=== PATIENT | female | born 1970 | race Caucasian/White ===

== ENCOUNTER → 2020-01-19 12:34 | Outpatient (CLI) | payer OTHER, SELFPAY ==
--- NOTE | 2020-01-19 12:44 | DI.MG.S_ITS ---
BILATERAL DIGITAL SCREENING MAMMOGRAM 3D/2D WITH CAD: 01/19/2020 CLINICAL: Routine screening. Comparison is made to exams dated: 04/06/2016 mammogram, 03/31/2015 mammogram, and 12/04/2013 mammogram - [facility]. The tissue of both breasts is extremely dense, which lowers the sensitivity of mammography. Current study was also evaluated with a Computer Aided Detection (CAD) system. No significant masses, calcifications, or other findings are seen in either breast. There has been no significant interval change. IMPRESSION: NEGATIVE There is no mammographic evidence of malignancy. A 1 year screening mammogram is recommended. This exam was interpreted at Station ID: [id number]. NOTE: For mammograms, a report in lay terms will be sent to the patient. Approximately 15% of breast malignancies will not be visualized mammographically. In the management of a palpable breast mass, a negative mammogram must not discourage biopsy of a clinically suspicious lesion. Electronically Signed By: Corrie daniel/yaquelin:01/19/2020 13:07:57 letter sent: Normal Exam ACR BI-RADS Category 1: Negative [id number]
--- NOTE | 2020-01-19 12:44 | DI.RAD.S_ITS ---
Approved by: Patrice Hall M.D. on 01/19/2020 at 13:52
== END ==
PROVIDERS: PCP Family Medicine; Referring Provider Psychiatry & Neurology Neurology; Visit Provider Psychiatry & Neurology Neurology
DX: Z12.31 Encounter for screening mammogram for malignant neoplasm of breast (principal); M85.852 Other specified disorders of bone density and structure, left thigh; G35 Multiple sclerosis; E07.9 Disorder of thyroid, unspecified; E83.51 Hypocalcemia; R63.6 Underweight; Z91.89 Other specified personal risk factors, not elsewhere classified; Z82.62 Family history of osteoporosis
CPT/HCPCS: 77063; 77067; 77080

== ENCOUNTER → 2021-09-08 10:37 | Outpatient (CLI) | payer OTHER, SELFPAY | PROVIDERS: PCP Family Medicine; Referring Provider Psychiatry & Neurology Neurology; Visit Provider Psychiatry & Neurology Neurology | DX: G35 Multiple sclerosis (principal) | CPT/HCPCS: 77080 ==

== ENCOUNTER → 2021-12-21 10:44 | Outpatient (CLI) | payer OTHER, SELFPAY ==
--- NOTE | 2021-12-21 | DI.CT.S_ITS ---
PROCEDURE: CT SINUS SCREEN WO CON INDICATIONS: Chronic pansinusitis TECHNIQUE: Noncontrast 3.0 mm axial images acquired from the frontal sinuses to the mid-sella, with coronal and sagittal reformats. For radiation dose reduction, the following was used: automated exposure control, adjustment of mA and/or kV according to patient size. COMPARISON: [facility], CT, SINUS SCREEN WO CONTRAST, 07/24/2016, 10:42. FINDINGS: Image quality: Excellent. Maxillary Sinuses: No bony remodeling or destruction. Sinuses are clear. Ethmoid Air Cells: No bony remodeling or destruction. Sinuses are clear. Sphenoid Sinuses: No bony remodeling or destruction. Sinuses are clear. Frontal Sinuses: No bony remodeling or destruction. Sinuses are clear. Ostiomeatal Complexes: Ostiomeatal complexes are patent. No Gracia cells. Miscellaneous: Visualized intra-orbital contents are normal. No issa bullosa or paradoxical turbinate curvature. No nasal septal deviation. IMPRESSION: Normal CT of the sinuses, unchanged from the prior Approved by: Sivakumar Lynch M.D. on 12/21/2021 at 15:49
== END ==
PROVIDERS: PCP Family Medicine; Referring Provider Otolaryngology; Visit Provider Otolaryngology
DX: J32.4 Chronic pansinusitis (principal)
CPT/HCPCS: 70486

== ENCOUNTER → 2022-04-05 11:26 | Outpatient (CLI) | payer OTHER, SELFPAY ==
--- NOTE | 2022-04-05 | DI.MG.S_ITS ---
BILATERAL DIGITAL SCREENING MAMMOGRAM 3D/2D WITH CAD: 04/05/2022 CLINICAL: Routine screening. Comparison is made to exams dated: 01/19/2020 mammogram, 04/06/2016 mammogram, and 03/31/2015 mammogram - [facility]. Both breasts are extremely dense, which lowers the sensitivity of mammography (category d />75% glandular tissue). Current study was also evaluated with a Computer Aided Detection (CAD) system. No significant masses, calcifications, or other findings are seen in either breast. There has been no significant interval change. IMPRESSION: NEGATIVE There is no mammographic evidence of malignancy. A 1 year screening mammogram is recommended. Based on Tyrer-Cuzick model (a risk assessment model), the patient's lifetime risk is 20.9% and her 10 year risk is 4.9%. If a patient has an elevated risk, a more comprehensive evaluation should be considered and/or a referral to a genetic counselor. The [employer] [employer], [employer], and NCCN Guidelines advise the consideration of Breast MRI as an adjunct to screening mammography in patients whose Lifetime risk to develop breast cancer is 20% or higher. This exam was interpreted at Station ID: [id number]. NOTE: For mammograms, a report in lay terms will be sent to the patient. Approximately 15% of breast malignancies will not be visualized mammographically. In the management of a palpable breast mass, a negative mammogram must not discourage biopsy of a clinically suspicious lesion. Electronically Signed By: Everardo Clinton M.D., jr/yaquelin:04/05/2022 14:24:07 letter sent: Normal Exam ACR BI-RADS Category 1: Negative 3341F
== END ==
PROVIDERS: PCP Physician Assistant; Referring Provider Physician Assistant; Visit Provider Physician Assistant
DX: Z12.31 Encounter for screening mammogram for malignant neoplasm of breast (principal)
CPT/HCPCS: 77063; 77067

== ENCOUNTER 2022-11-12 10:00 | Outpatient (RCR) | payer OTHER, SELFPAY ==
--- NOTE | 2022-09-04 17:25 | PT.OIE ---
Current Diagnoses Stress incontinence (female) (male) (09/03/22) Visit Care Team Role Provider Type Ana Rosa Coleman PA-C Attending Provider Non-Staff Family Provider Primary Care Provider Referring Provider Specialty: Medical Address: [facility], [address], [place], [address] Email: Physical Therapy Initial Evaluation PT-OP-A Visit Information Start: 08/31/22 17:59 Freq: Status: Active Protocol: Document 09/03/22 10:34 LRN (Rec: 09/03/22 11:22 LRN [id number]) Out-Patient Physical Therapy Visit Information Visit Information Visit Type Initial Evaluation Visit Start Time 10:34 Visit Stop Time 11:21 Total Visit Minutes 49 Visit Number 1 Evaluation Information Evaluation Date 09/03/22 Precautions Precautions MS, controlled by medications. PT-OP-B Current Condition Start: 08/31/22 17:59 Freq: Status: Active Protocol: Document 09/03/22 10:34 LRN (Rec: 09/03/22 11:22 LRN [id number]) Current Condition History of Current Condition Onset Date 2 yrs ago. Current Complaints Wants to learn how to strengthen PF ms to prevent prolapse from worsening. History of Current Condition Drinks a ton of water and can always go to the bathroom. In [place], was told she had a mild prolapse. If she has a full bladder and sneeze she leaks and sometimes severe leakage. Developmental History Developmental History 3G, 2P. 2 vaginal births of preemie babies. 1st 6#6oz's required stitches, 2nd no stitches required. Treatment Goals Patient/Caregiver Goals Trying to avoid bladder surgery by being proactive and learn how to strengthen her PF. Pt agreeable to adding goal for indepedent self care HEP, to increase hip mobility and PF strength. Personal Factors Other Personal Factors That May Effect MS diagnosed 15 yrs ago being Therapy/Recovery controlled by interferon, having twitches at night that wake her up, hypothyroid disorder (levothyroxine), acid reflux. PT-OP-C Subjective Start: 08/31/22 17:59 Freq: Status: Active Protocol: Document 09/03/22 10:34 LRN (Rec: 09/03/22 11:22 LRN [id number]) Patient Questionnaires Pelvic Pain and Urgency/Frequency Patient Symptom Scale Pelvic Pain Score 12 PT-OP-I Pelvic Floor Start: 08/31/22 17:59 Freq: Status: Active Protocol: Document 09/03/22 10:34 LRN (Rec: 09/04/22 17:01 LRN [id number]) Pelvic Floor Assessment Prolapse Cystocele Grade 2 Rectocele Grade 1 Perineal Descent Resting Absent Bearing Absent Contraction Ability Manual Muscle Testing Left 2 Manual Muscle Testing Right 3 Manual Muscle Testing Anterior 2 Manual Muscle Testing Posterior 3 Comments Pelvic Floor Comments At PF clock 6 there is extra tissue in the vaginal canal that has appearance of fatty tissue, but skin-tag like. PT-OP-J Posture/Palpation/Skin Start: 09/04/22 16:45 Freq: Status: Active Protocol: Document 09/03/22 10:34 LRN (Rec: 09/04/22 16:47 LRN [id number]) Posture Evaluation Position Standing T-Spine Posture Flattened L-Spine Posture Increased Lordosis Shoulder Posture (L) Rounded,(R) Rounded,(L) Forward,(R) Forward,(L) Elevated Arm Posture (L) Internally Rotated,(R) Internally Rotated Comments Posture Comments Dowagers hump. C-curve of spine with apex on the left. PT-OP-K Range of Motion Start: 08/31/22 17:59 Freq: Status: Active Protocol: Document 09/03/22 10:34 LRN (Rec: 09/03/22 11:22 LRN [id number]) Lumbar Spine Range of Motion Lumbar Spine Active Degrees Testing Position Standing Flexion 85 Extension 25 Rotation Left 20 Rotation Right 15 Lateral Flexion Left 10 Lateral Flexion Right 15 Comments Trunk FB: 85 deg's with 60 deg's of hip flexion Trunk BB: 25 deg's with 15 deg's hip extension Hip Goniometric Range of Motion Hip Right Passive Testing Position Supine Straight Leg Raise 80 Internal Rotation 45 External Rotation 60 Left Passive Testing Position Supine Straight Leg Raise 80 Internal Rotation 45 External Rotation 55 PT-OP-M Strength Start: 08/31/22 17:59 Freq: Status: Active Protocol: Document 09/03/22 10:34 LRN (Rec: 09/03/22 11:22 LRN [id number]) Trunk Strength Trunk Manual Muscle Testing Core Stabilization Pt has loss of core stability in sidelie Hip Strength Hip Manual Muscle Testing Right Flexion (L2) 5 Normal Extension (S1) 5 Normal Abduction 5 Normal Adduction 5 Normal External Rotation 5 Normal Internal Rotation 4 Good Left Flexion (L2) 5 Normal Extension (S1) 5 Normal Abduction 5 Normal Adduction 5 Normal External Rotation 5 Normal Internal Rotation 3+ Fair+ PT-OP-Q Treatments Start: 08/31/22 17:59 Freq: Status: Active Protocol: Document 09/03/22 10:34 LRN (Rec: 09/03/22 11:22 LRN [id number]) Self-Care/Home Management Treatment Education Other Education Discussed results of evaluation, goals, and plan of care (POC). Pt agreeable to goals and POC. Education: Reviewed handout for Kegel exercises for Quick Flicks, Long Holds & Aggrevators. Pt educated in use of Bladder Diary and I/S in tracking for 1 week. Discussed use of 2 different diaries for tracking of bladder. PT-OP-T Assessment and Plan Start: 08/31/22 17:59 Freq: Status: Active Protocol: Document 09/03/22 10:34 LRN (Rec: 09/03/22 11:22 LRN [id number]) Physical Therapy Assessment Rehab Potential Rehabilitation Potential Excellent Evaluation Complexity Number of Personal Factors/Comorbidities 1-2 Number of Body Systems Impaired 4 or More Clinical Presentation at Evaluation Evolving Impairments Impairments Posture,ROM,Strength,Transfers Goals Three Impairment Decreased PF strength Short Term Goal (STG) Improve pt postural awareness (decrease lordosis). STG Duration 10/19/22 Medical Transcription Editor Goal (LTG) At end of walk with a full bladder, walking downhill and sneeze or cough, without leakage. LTG Duration 12/02/22 Two Impairment Decreased hip mobility Fdc Goal (LTG) Symmetry of hip rotation mobility. LTG Duration 12/02/22 One Impairment HEP Short Term Goal (STG) Education in proper breath with transfers and vulvar/ genital care. STG Duration 10/19/22 Medical Transcription Editor Goal (LTG) Trying to avoid bladder surgery by being proactive and learn how to strengthen her PF. LTG Duration 12/02/22 Assessment Summary Assessment Pt is a 51 yo female who presents with cystocele and mild rectocele, with weakness of her PF muscles mainly on the left. Further assessment is needed for endurance and quick flick strength of contractions. The pt has decreased hip ER > IR mobility and trunk R rot/L SB, and demonstrates breath holding with functional movements. From pt's subjective history she appears to have increased urinary frequency that may be related to her fluid intake and output, which will be assessed at her next appointment. The pt will benefit from skillled physical therapy for pt education in vulvar/genital care, proper PF strengthening exercise, hip/ trunk mobility, education and training in proper coordination of transfers with breathwork and PF tightening. Physical Therapy Plan Frequency and Duration Frequency of Treatment 1x/Week Plan of Care Start Date 09/03/22 Plan of Care End Date 12/02/22 Therapeutic Interventions Therapeutic Interventions Home Exercise Program,Joint Mobilizations,Manual Therapy, Neuromuscular Re-education, Patient/Caregiver Education, Self-Care/Home Management,Soft Tissue Mobilization, Therapeutic Activities, Therapeutic Exercises Other Referrals/Consults Referrals/Consults Recommended Assessment of extra vaginal tissue at PF clock 6. Next Visit Focus/Plan Next Note Type Treatment Note Next Visit Plan Review bladder diary (stool types, foods, and water intake ), and Kegels, and educate in Kegel without use of substitute muscles, Assess PF endurance and Quick Flicks and EMG biofeedback assessment. Education in vulvar/genital care, proper deep breathing, proper breathing with transfer /body mechanics. PF/core-TA/hip strengthening, ROM: improve hip mobility, improve abdominal soft tissue (bladder) mobility, Biofeedback with vaginal/ rectal/surface sensor(s).
--- NOTE | 2022-09-04 17:25 | PT.OPPOC ---
Physical, Occupational & Speech Therapy At [facility] Current Diagnoses Stress incontinence (female) (male) (09/03/22) Visit Care Team Role Provider Type Ana Rosa Coleman PA-C Attending Provider Non-Staff Family Provider Primary Care Provider Referring Provider Specialty: Medical Address: [facility], [address] [place] [address] [address], [place], [address] Email: Plan Of Care PT-OP-T Assessment and Plan Start: 08/31/22 17:59 Freq: Status: Active Protocol: Document 09/03/22 10:34 LRN (Rec: 09/03/22 11:22 LRN [id number]) Physical Therapy Assessment Rehab Potential Rehabilitation Potential Excellent Evaluation Complexity Number of Personal Factors/Comorbidities 1-2 Number of Body Systems Impaired 4 or More Clinical Presentation at Evaluation Evolving Impairments Impairments Posture,ROM,Strength,Transfers Goals Three Impairment Decreased PF strength Short Term Goal (STG) Improve pt postural awareness (decrease lordosis). STG Duration 10/19/22 Environmental Project Manager Goal (LTG) At end of walk with a full bladder, walking downhill and sneeze or cough, without leakage. LTG Duration 12/02/22 Two Impairment Decreased hip mobility Nursing Home Goal (LTG) Symmetry of hip rotation mobility. LTG Duration 12/02/22 One Impairment HEP Short Term Goal (STG) Education in proper breath with transfers and vulvar/ genital care. STG Duration 10/19/22 Environmental Project Manager Goal (LTG) Trying to avoid bladder surgery by being proactive and learn how to strengthen her PF. LTG Duration 12/02/22 Assessment Summary Assessment Pt is a 51 yo female who presents with cystocele and mild rectocele, with weakness of her PF muscles mainly on the left. Further assessment is needed for endurance and quick flick strength of contractions. The pt has decreased hip ER > IR mobility and trunk R rot/L SB, and demonstrates breath holding with functional movements. From pt's subjective history she appears to have increased urinary frequency that may be related to her fluid intake and output, which will be assessed at her next appointment. The pt will benefit from skillled physical therapy for pt education in vulvar/genital care, proper PF strengthening exercise, hip/ trunk mobility, education and training in proper coordination of transfers with breathwork and PF tightening. Physical Therapy Plan Frequency and Duration Frequency of Treatment 1x/Week Plan of Care Start Date 09/03/22 Plan of Care End Date 12/02/22 Therapeutic Interventions Therapeutic Interventions Home Exercise Program,Joint Mobilizations,Manual Therapy, Neuromuscular Re-education, Patient/Caregiver Education, Self-Care/Home Management,Soft Tissue Mobilization, Therapeutic Activities, Therapeutic Exercises Other Referrals/Consults Referrals/Consults Recommended Assessment of extra vaginal tissue at PF clock 6. Next Visit Focus/Plan Next Note Type Treatment Note Next Visit Plan Review bladder diary (stool types, foods, and water intake ), and Kegels, and educate in Kegel without use of substitute muscles, Assess PF endurance and Quick Flicks and EMG biofeedback assessment. Education in vulvar/genital care, proper deep breathing, proper breathing with transfer /body mechanics. PF/core-TA/hip strengthening, ROM: improve hip mobility, improve abdominal soft tissue (bladder) mobility, Biofeedback with vaginal/ rectal/surface sensor(s). Plan of Care Dates Plan of Care Start Date 09/03/22 Plan of Care End Date 12/02/22 Electronically Signed by: Corrie Schmidt, PT 09/04/22 [id number] If you are in agreement with this Plan of Care, please return a signed and dated copy. I have reviewed this Plan of Care and certify that the skilled therapy services above are required to meet the patient?s needs. Physician Signature Date Printed Name and Credentials Clinical Instructor Signature Printed Name and Credentials
--- NOTE | 2022-09-10 17:17 | PT.OTN ---
Current Diagnoses Stress incontinence (female) (male) (09/10/22) Physical Therapy Treatment Note PT-OP-A Visit Information Start: 08/31/22 17:59 Freq: Status: Active Protocol: Document 09/10/22 13:50 LRN (Rec: 09/10/22 16:55 LRN [id number]) Out-Patient Physical Therapy Visit Information Visit Information Visit Type Treatment Note Visit Start Time 13:50 Visit Stop Time 14:28 Total Visit Minutes 38 Visit Number 3 Evaluation Information Evaluation Date 09/03/22 Precautions Precautions MS, controlled by medications. PT-OP-B Current Condition Start: 08/31/22 17:59 Freq: Status: Active Protocol: Document 09/03/22 10:34 LRN (Rec: 09/03/22 11:22 LRN [id number]) Current Condition History of Current Condition Onset Date 2 yrs ago. Current Complaints Wants to learn how to strengthen PF ms to prevent prolapse from worsening. History of Current Condition Drinks a ton of water and can always go to the bathroom. In [place], was told she had a mild prolapse. If she has a full bladder and sneeze she leaks and sometimes severe leakage. Developmental History Developmental History 3G, 2P. 2 vaginal births of preemie babies. 1st 6#6oz's required stitches, 2nd no stitches required. Treatment Goals Patient/Caregiver Goals Trying to avoid bladder surgery by being proactive and learn how to strengthen her PF. Pt agreeable to adding goal for indepedent self care HEP, to increase hip mobility and PF strength. Personal Factors Other Personal Factors That May Effect MS diagnosed 15 yrs ago being Therapy/Recovery controlled by interferon, having twitches at night that wake her up, hypothyroid disorder (levothyroxine), acid reflux. PT-OP-C Subjective Start: 08/31/22 17:59 Freq: Status: Active Protocol: Document 09/10/22 13:50 LRN (Rec: 09/10/22 14:35 LRN [id number]) OP-PT Subjective Patient Comments Patient Comments States she tried not to JIC urination. Notices she urinates as much as she drinks . Quick Flicks (10x 3x/day) easier than Long holds (3-4x, 3x/day). PT-OP-I Pelvic Floor Start: 08/31/22 17:59 Freq: Status: Active Protocol: Document 09/03/22 10:34 LRN (Rec: 09/04/22 17:01 LRN [id number]) Pelvic Floor Assessment Prolapse Cystocele Grade 2 Rectocele Grade 1 Perineal Descent Resting Absent Bearing Absent Contraction Ability Manual Muscle Testing Left 2 Manual Muscle Testing Right 3 Manual Muscle Testing Anterior 2 Manual Muscle Testing Posterior 3 Comments Pelvic Floor Comments At PF clock 6 there is extra tissue in the vaginal canal that has appearance of fatty tissue, but skin-tag like. PT-OP-J Posture/Palpation/Skin Start: 09/04/22 16:45 Freq: Status: Active Protocol: Document 09/03/22 10:34 LRN (Rec: 09/04/22 16:47 LRN [id number]) Posture Evaluation Position Standing T-Spine Posture Flattened L-Spine Posture Increased Lordosis Shoulder Posture (L) Rounded,(R) Rounded,(L) Forward,(R) Forward,(L) Elevated Arm Posture (L) Internally Rotated,(R) Internally Rotated Comments Posture Comments Dowagers hump. C-curve of spine with apex on the left. PT-OP-K Range of Motion Start: 08/31/22 17:59 Freq: Status: Active Protocol: Document 09/03/22 10:34 LRN (Rec: 09/03/22 11:22 LRN [id number]) Lumbar Spine Range of Motion Lumbar Spine Active Degrees Testing Position Standing Flexion 85 Extension 25 Rotation Left 20 Rotation Right 15 Lateral Flexion Left 10 Lateral Flexion Right 15 Comments Trunk FB: 85 deg's with 60 deg's of hip flexion Trunk BB: 25 deg's with 15 deg's hip extension Hip Goniometric Range of Motion Hip Right Passive Testing Position Supine Straight Leg Raise 80 Internal Rotation 45 External Rotation 60 Left Passive Testing Position Supine Straight Leg Raise 80 Internal Rotation 45 External Rotation 55 PT-OP-M Strength Start: 08/31/22 17:59 Freq: Status: Active Protocol: Document 09/03/22 10:34 LRN (Rec: 09/03/22 11:22 LRN [id number]) Trunk Strength Trunk Manual Muscle Testing Core Stabilization Pt has loss of core stability in sidelie Hip Strength Hip Manual Muscle Testing Right Flexion (L2) 5 Normal Extension (S1) 5 Normal Abduction 5 Normal Adduction 5 Normal External Rotation 5 Normal Internal Rotation 4 Good Left Flexion (L2) 5 Normal Extension (S1) 5 Normal Abduction 5 Normal Adduction 5 Normal External Rotation 5 Normal Internal Rotation 3+ Fair+ PT-OP-Q Treatments Start: 08/31/22 17:59 Freq: Status: Active Protocol: Document 09/10/22 13:50 LRN (Rec: 09/10/22 14:35 LRN [id number]) Therapeutic Exercises Supine Exercises Deep Breathing Supine Exercise Name With Cuing and w/o cuing. Reps/Minutes 3' Comments Extra time taken for training, phys & v cuing needed. Bowel Massage Supine Exercise Name Bowel massage w/assist & independently Reps/Minutes 15' Comments Extra time taken for training, phys & v cuing needed. Self-Care/Home Management Treatment Education Patient Education Home Exercise Program Other Education Reviewed Bladder dairy and discussed fluid intake (AM/PM) , bowel movement frequency. Pt lengthy education and discussion of how constipation exacerbate bladder prolapse. Discussed at length Bowel program with I/S of pt to discuss with MD use of magnesium for constipation if needed. Discussed and educated pt in Bowel massage technique with handout issued. Pt educated in PF muscles and internal organ positioning using balloon in canister concept, explaining pressures on organs (cystocele/rectocele ) and discussed how this can worsen with decreased bowel mobility and breath holding. Activities Self-Care/Home Management Activities Issued & reviewed HEP: Bowel Program & Bowel Massage, and deep breathing instructions. PT-OP-T Assessment and Plan Start: 08/31/22 17:59 Freq: Status: Active Protocol: Document 09/10/22 13:50 LRN (Rec: 09/10/22 14:35 LRN [id number]) Physical Therapy Assessment Goals Three Impairment Decreased PF strength Short Term Goal (STG) Improve pt postural awareness (decrease lordosis). STG Duration 10/19/22 Nursing Home Goal (LTG) At end of walk with a full bladder, walking downhill and sneeze or cough, without leakage. LTG Duration 12/02/22 Two Impairment Decreased hip mobility Block Tester Goal (LTG) Symmetry of hip rotation mobility. LTG Duration 12/02/22 One Impairment HEP Short Term Goal (STG) Education in proper breath with transfers and vulvar/ genital care. 09/10/22: Pt educated in deep deep breathing for transfers. STG Duration 10/19/22 progressing 09/10/22 - educ in breathing. Nursing Home Goal (LTG) Trying to avoid bladder surgery by being proactive and learn how to strengthen her PF. LTG Duration 12/02/22 Assessment Summary Assessment Pt receptive to recommendations of bladder review request of counting voiding times with urination and increasing fiber in diet. Pt also very receptive regarding bowel program to increase fiber in diet. Pt needed training for bowel massage and deep breathing was not able to achieve completely due to possible habit of use of upper chest for breathing. Physical Therapy Plan Frequency and Duration Frequency of Treatment 1x/Week Plan of Care Start Date 09/03/22 Plan of Care End Date 12/02/22 Next Visit Focus/Plan Next Note Type Treatment Note Next Visit Plan Review bladder diary (for fluid intake vs output in seconds) and deep breathing. Review Kegels and educate in Kegel without use of substitute muscles. Education in vulvar/genital care, proper breathing with transfer/body mechanics. Assess PF endurance and Quick Flicks and EMG biofeedback assessment. Biofeedback with vaginal/rectal/surface sensor( s). PF/core-TA/hip strengthening, ROM: improve hip mobility, improve abdominal soft tissue (bladder) mobility,
--- NOTE | 2022-10-22 16:03 | PT.OTN ---
Current Diagnoses Stress incontinence (female) (male) (10/22/22) Physical Therapy Treatment Note PT-OP-A Visit Information Start: 08/31/22 17:59 Freq: Status: Active Protocol: Document 10/22/22 13:39 AMB (Rec: 10/22/22 14:34 AMB [id number]) Out-Patient Physical Therapy Visit Information Visit Information Visit Type Treatment Note Visit Start Time 13:50 Visit Stop Time 14:28 Total Visit Minutes 38 Visit Number 4 PT-OP-B Current Condition Start: 08/31/22 17:59 Freq: Status: Active Protocol: Document 09/03/22 10:34 LRN (Rec: 09/03/22 11:22 LRN [id number]) Current Condition History of Current Condition Onset Date 2 yrs ago. Current Complaints Wants to learn how to strengthen PF ms to prevent prolapse from worsening. History of Current Condition Drinks a ton of water and can always go to the bathroom. In [place], was told she had a mild prolapse. If she has a full bladder and sneeze she leaks and sometimes severe leakage. Developmental History Developmental History 3G, 2P. 2 vaginal births of preemie babies. 1st 6#6oz's required stitches, 2nd no stitches required. Treatment Goals Patient/Caregiver Goals Trying to avoid bladder surgery by being proactive and learn how to strengthen her PF. Pt agreeable to adding goal for indepedent self care HEP, to increase hip mobility and PF strength. Personal Factors Other Personal Factors That May Effect MS diagnosed 15 yrs ago being Therapy/Recovery controlled by interferon, having twitches at night that wake her up, hypothyroid disorder (levothyroxine), acid reflux. PT-OP-C Subjective Start: 08/31/22 17:59 Freq: Status: Active Protocol: Document 10/22/22 13:39 AMB (Rec: 10/22/22 14:34 AMB [id number]) OP-PT Subjective Patient Comments Patient Comments Feels like ability to wait every 2 hours. PT-OP-I Pelvic Floor Start: 08/31/22 17:59 Freq: Status: Active Protocol: Document 09/03/22 10:34 LRN (Rec: 09/04/22 17:01 LRN [id number]) Pelvic Floor Assessment Prolapse Cystocele Grade 2 Rectocele Grade 1 Perineal Descent Resting Absent Bearing Absent Contraction Ability Manual Muscle Testing Left 2 Manual Muscle Testing Right 3 Manual Muscle Testing Anterior 2 Manual Muscle Testing Posterior 3 Comments Pelvic Floor Comments At PF clock 6 there is extra tissue in the vaginal canal that has appearance of fatty tissue, but skin-tag like. PT-OP-J Posture/Palpation/Skin Start: 09/04/22 16:45 Freq: Status: Active Protocol: Document 09/03/22 10:34 LRN (Rec: 09/04/22 16:47 LRN [id number]) Posture Evaluation Position Standing T-Spine Posture Flattened L-Spine Posture Increased Lordosis Shoulder Posture (L) Rounded,(R) Rounded,(L) Forward,(R) Forward,(L) Elevated Arm Posture (L) Internally Rotated,(R) Internally Rotated Comments Posture Comments Dowagers hump. C-curve of spine with apex on the left. PT-OP-K Range of Motion Start: 08/31/22 17:59 Freq: Status: Active Protocol: Document 09/03/22 10:34 LRN (Rec: 09/03/22 11:22 LRN [id number]) Lumbar Spine Range of Motion Lumbar Spine Active Degrees Testing Position Standing Flexion 85 Extension 25 Rotation Left 20 Rotation Right 15 Lateral Flexion Left 10 Lateral Flexion Right 15 Comments Trunk FB: 85 deg's with 60 deg's of hip flexion Trunk BB: 25 deg's with 15 deg's hip extension Hip Goniometric Range of Motion Hip Right Passive Testing Position Supine Straight Leg Raise 80 Internal Rotation 45 External Rotation 60 Left Passive Testing Position Supine Straight Leg Raise 80 Internal Rotation 45 External Rotation 55 PT-OP-M Strength Start: 08/31/22 17:59 Freq: Status: Active Protocol: Document 09/03/22 10:34 LRN (Rec: 09/03/22 11:22 LRN [id number]) Trunk Strength Trunk Manual Muscle Testing Core Stabilization Pt has loss of core stability in sidelie Hip Strength Hip Manual Muscle Testing Right Flexion (L2) 5 Normal Extension (S1) 5 Normal Abduction 5 Normal Adduction 5 Normal External Rotation 5 Normal Internal Rotation 4 Good Left Flexion (L2) 5 Normal Extension (S1) 5 Normal Abduction 5 Normal Adduction 5 Normal External Rotation 5 Normal Internal Rotation 3+ Fair+ PT-OP-Q Treatments Start: 08/31/22 17:59 Freq: Status: Active Protocol: Document 10/22/22 13:39 AMB (Rec: 10/22/22 14:34 AMB [id number]) Therapeutic Exercises Supine Exercises Long hold Supine Exercise Name with cues for levator ani lift PT-OP-T Assessment and Plan Start: 08/31/22 17:59 Freq: Status: Active Protocol: Document 10/22/22 13:39 AMB (Rec: 10/22/22 14:34 AMB [id number]) Physical Therapy Assessment Goals Three Impairment Decreased PF strength Short Term Goal (STG) Improve pt postural awareness (decrease lordosis). STG Duration 10/19/22 Front End Driver Goal (LTG) At end of walk with a full bladder, walking downhill and sneeze or cough, without leakage. LTG Duration 12/02/22 Two Impairment Decreased hip mobility Usp Goal (LTG) Symmetry of hip rotation mobility. LTG Duration 12/02/22 One Impairment HEP Short Term Goal (STG) Education in proper breath with transfers and vulvar/ genital care. 09/10/22: Pt educated in deep deep breathing for transfers. STG Duration 10/19/22 progressing 09/10/22 - educ in breathing. Usp Goal (LTG) Trying to avoid bladder surgery by being proactive and learn how to strengthen her PF. LTG Duration 12/02/22 Assessment Summary Assessment Pt concerned about extra skin found vaginally, consider changes from childbirth as is right next to perineal scar. Pt is considering vaginal estrogen cream. Pt encouraged in really working on lift. Physical Therapy Plan Frequency and Duration Frequency of Treatment 1x/Week Plan of Care Start Date 09/03/22 Plan of Care End Date 12/02/22 Therapeutic Interventions Therapeutic Interventions Home Exercise Program,Joint Mobilizations,Manual Therapy, Neuromuscular Re-education, Patient/Caregiver Education, Self-Care/Home Management,Soft Tissue Mobilization, Therapeutic Activities, Therapeutic Exercises Next Visit Focus/Plan Next Note Type Treatment Note Next Visit Plan Review bladder diary (for fluid intake vs output in seconds) and deep breathing. Review Kegels and educate in Kegel without use of substitute muscles. Education in vulvar/genital care, proper breathing with transfer/body mechanics. Assess PF endurance and Quick Flicks and EMG biofeedback assessment. Biofeedback with vaginal/rectal/surface sensor( s). PF/core-TA/hip strengthening, ROM: improve hip mobility, improve abdominal soft tissue (bladder) mobility,
--- NOTE | 2022-10-29 10:50 | PT.OTN ---
Current Diagnoses Stress incontinence (female) (male) (10/29/22) Physical Therapy Treatment Note PT-OP-A Visit Information Start: 08/31/22 17:59 Freq: Status: Active Protocol: Document 10/29/22 10:00 AMB (Rec: 10/29/22 10:49 AMB [id number]) Out-Patient Physical Therapy Visit Information Visit Information Visit Type Treatment Note Visit Start Time 13:50 Visit Stop Time 14:28 Total Visit Minutes 38 Visit Number 5 PT-OP-B Current Condition Start: 08/31/22 17:59 Freq: Status: Active Protocol: Document 09/03/22 10:34 LRN (Rec: 09/03/22 11:22 LRN [id number]) Current Condition History of Current Condition Onset Date 2 yrs ago. Current Complaints Wants to learn how to strengthen PF ms to prevent prolapse from worsening. History of Current Condition Drinks a ton of water and can always go to the bathroom. In [place], was told she had a mild prolapse. If she has a full bladder and sneeze she leaks and sometimes severe leakage. Developmental History Developmental History 3G, 2P. 2 vaginal births of preemie babies. 1st 6#6oz's required stitches, 2nd no stitches required. Treatment Goals Patient/Caregiver Goals Trying to avoid bladder surgery by being proactive and learn how to strengthen her PF. Pt agreeable to adding goal for indepedent self care HEP, to increase hip mobility and PF strength. Personal Factors Other Personal Factors That May Effect MS diagnosed 15 yrs ago being Therapy/Recovery controlled by interferon, having twitches at night that wake her up, hypothyroid disorder (levothyroxine), acid reflux. PT-OP-C Subjective Start: 08/31/22 17:59 Freq: Status: Active Protocol: Document 10/29/22 10:00 AMB (Rec: 10/29/22 10:49 AMB [id number]) OP-PT Subjective Patient Comments Patient Comments Pt feels like ability to hold contraction is improving. PT-OP-I Pelvic Floor Start: 08/31/22 17:59 Freq: Status: Active Protocol: Document 09/03/22 10:34 LRN (Rec: 09/04/22 17:01 LRN [id number]) Pelvic Floor Assessment Prolapse Cystocele Grade 2 Rectocele Grade 1 Perineal Descent Resting Absent Bearing Absent Contraction Ability Manual Muscle Testing Left 2 Manual Muscle Testing Right 3 Manual Muscle Testing Anterior 2 Manual Muscle Testing Posterior 3 Comments Pelvic Floor Comments At PF clock 6 there is extra tissue in the vaginal canal that has appearance of fatty tissue, but skin-tag like. PT-OP-J Posture/Palpation/Skin Start: 09/04/22 16:45 Freq: Status: Active Protocol: Document 09/03/22 10:34 LRN (Rec: 09/04/22 16:47 LRN [id number]) Posture Evaluation Position Standing T-Spine Posture Flattened L-Spine Posture Increased Lordosis Shoulder Posture (L) Rounded,(R) Rounded,(L) Forward,(R) Forward,(L) Elevated Arm Posture (L) Internally Rotated,(R) Internally Rotated Comments Posture Comments Dowagers hump. C-curve of spine with apex on the left. PT-OP-K Range of Motion Start: 08/31/22 17:59 Freq: Status: Active Protocol: Document 09/03/22 10:34 LRN (Rec: 09/03/22 11:22 LRN [id number]) Lumbar Spine Range of Motion Lumbar Spine Active Degrees Testing Position Standing Flexion 85 Extension 25 Rotation Left 20 Rotation Right 15 Lateral Flexion Left 10 Lateral Flexion Right 15 Comments Trunk FB: 85 deg's with 60 deg's of hip flexion Trunk BB: 25 deg's with 15 deg's hip extension Hip Goniometric Range of Motion Hip Right Passive Testing Position Supine Straight Leg Raise 80 Internal Rotation 45 External Rotation 60 Left Passive Testing Position Supine Straight Leg Raise 80 Internal Rotation 45 External Rotation 55 PT-OP-M Strength Start: 08/31/22 17:59 Freq: Status: Active Protocol: Document 09/03/22 10:34 LRN (Rec: 09/03/22 11:22 LRN [id number]) Trunk Strength Trunk Manual Muscle Testing Core Stabilization Pt has loss of core stability in sidelie Hip Strength Hip Manual Muscle Testing Right Flexion (L2) 5 Normal Extension (S1) 5 Normal Abduction 5 Normal Adduction 5 Normal External Rotation 5 Normal Internal Rotation 4 Good Left Flexion (L2) 5 Normal Extension (S1) 5 Normal Abduction 5 Normal Adduction 5 Normal External Rotation 5 Normal Internal Rotation 3+ Fair+ PT-OP-Q Treatments Start: 08/31/22 17:59 Freq: Status: Active Protocol: Document 10/29/22 10:00 AMB (Rec: 10/29/22 10:49 AMB [id number]) Neuro Re-Education Treatment Other Activities sEMG Comments 10 second holds. PT-OP-T Assessment and Plan Start: 08/31/22 17:59 Freq: Status: Active Protocol: Document 10/29/22 10:00 AMB (Rec: 10/29/22 10:49 AMB [id number]) Physical Therapy Assessment Goals Three Impairment Decreased PF strength Short Term Goal (STG) Improve pt postural awareness (decrease lordosis). STG Duration 10/19/22 Rental Agent Goal (LTG) At end of walk with a full bladder, walking downhill and sneeze or cough, without leakage. LTG Duration 12/02/22 Two Impairment Decreased hip mobility Rental Agent Goal (LTG) Symmetry of hip rotation mobility. LTG Duration 12/02/22 One Impairment HEP Short Term Goal (STG) Education in proper breath with transfers and vulvar/ genital care. 09/10/22: Pt educated in deep deep breathing for transfers. STG Duration 10/19/22 progressing 09/10/22 - educ in breathing. Halfway Goal (LTG) Trying to avoid bladder surgery by being proactive and learn how to strengthen her PF. LTG Duration 12/02/22 Assessment Summary Assessment Baseline 3, avg 9, max 22, some fading from initial contraction after the first few seconds. Encouraged pt to contract pelvic floor while lifting, will progress HEP at next visit, focus on breath and lifting perineum. Physical Therapy Plan Frequency and Duration Frequency of Treatment 1x/Week Plan of Care Start Date 09/03/22 Plan of Care End Date 12/02/22 Therapeutic Interventions Therapeutic Interventions Home Exercise Program,Joint Mobilizations,Manual Therapy, Neuromuscular Re-education, Patient/Caregiver Education, Self-Care/Home Management,Soft Tissue Mobilization, Therapeutic Activities, Therapeutic Exercises Next Visit Focus/Plan Next Note Type Treatment Note Next Visit Plan Progress HEPEMG biofeedback assessment. Biofeedback with vaginal/rectal/surface sensor( s). PF/core-TA/hip strengthening, ROM: improve hip mobility, improve abdominal soft tissue (bladder) mobility,
--- NOTE | 2022-11-05 13:08 | PT.OTN ---
Current Diagnoses Stress incontinence (female) (male) (11/05/22) Physical Therapy Treatment Note PT-OP-A Visit Information Start: 08/31/22 17:59 Freq: Status: Active Protocol: Document 11/05/22 12:48 AMB (Rec: 11/05/22 13:27 AMB [id number]) Out-Patient Physical Therapy Visit Information Visit Information Visit Type Treatment Note Visit Start Time 12:45 Visit Stop Time 13:30 Total Visit Minutes 45 Visit Number 6 PT-OP-B Current Condition Start: 08/31/22 17:59 Freq: Status: Active Protocol: Document 09/03/22 10:34 LRN (Rec: 09/03/22 11:22 LRN [id number]) Current Condition History of Current Condition Onset Date 2 yrs ago. Current Complaints Wants to learn how to strengthen PF ms to prevent prolapse from worsening. History of Current Condition Drinks a ton of water and can always go to the bathroom. In [place], was told she had a mild prolapse. If she has a full bladder and sneeze she leaks and sometimes severe leakage. Developmental History Developmental History 3G, 2P. 2 vaginal births of preemie babies. 1st 6#6oz's required stitches, 2nd no stitches required. Treatment Goals Patient/Caregiver Goals Trying to avoid bladder surgery by being proactive and learn how to strengthen her PF. Pt agreeable to adding goal for indepedent self care HEP, to increase hip mobility and PF strength. Personal Factors Other Personal Factors That May Effect MS diagnosed 15 yrs ago being Therapy/Recovery controlled by interferon, having twitches at night that wake her up, hypothyroid disorder (levothyroxine), acid reflux. PT-OP-C Subjective Start: 08/31/22 17:59 Freq: Status: Active Protocol: Document 11/05/22 12:48 AMB (Rec: 11/05/22 13:27 AMB [id number]) OP-PT Subjective Patient Comments Patient Comments Noticing improvement with her pelvic floor, PT-OP-I Pelvic Floor Start: 08/31/22 17:59 Freq: Status: Active Protocol: Document 09/03/22 10:34 LRN (Rec: 09/04/22 17:01 LRN [id number]) Pelvic Floor Assessment Prolapse Cystocele Grade 2 Rectocele Grade 1 Perineal Descent Resting Absent Bearing Absent Contraction Ability Manual Muscle Testing Left 2 Manual Muscle Testing Right 3 Manual Muscle Testing Anterior 2 Manual Muscle Testing Posterior 3 Comments Pelvic Floor Comments At PF clock 6 there is extra tissue in the vaginal canal that has appearance of fatty tissue, but skin-tag like. PT-OP-J Posture/Palpation/Skin Start: 09/04/22 16:45 Freq: Status: Active Protocol: Document 09/03/22 10:34 LRN (Rec: 09/04/22 16:47 LRN [id number]) Posture Evaluation Position Standing T-Spine Posture Flattened L-Spine Posture Increased Lordosis Shoulder Posture (L) Rounded,(R) Rounded,(L) Forward,(R) Forward,(L) Elevated Arm Posture (L) Internally Rotated,(R) Internally Rotated Comments Posture Comments Dowagers hump. C-curve of spine with apex on the left. PT-OP-K Range of Motion Start: 08/31/22 17:59 Freq: Status: Active Protocol: Document 09/03/22 10:34 LRN (Rec: 09/03/22 11:22 LRN [id number]) Lumbar Spine Range of Motion Lumbar Spine Active Degrees Testing Position Standing Flexion 85 Extension 25 Rotation Left 20 Rotation Right 15 Lateral Flexion Left 10 Lateral Flexion Right 15 Comments Trunk FB: 85 deg's with 60 deg's of hip flexion Trunk BB: 25 deg's with 15 deg's hip extension Hip Goniometric Range of Motion Hip Right Passive Testing Position Supine Straight Leg Raise 80 Internal Rotation 45 External Rotation 60 Left Passive Testing Position Supine Straight Leg Raise 80 Internal Rotation 45 External Rotation 55 PT-OP-M Strength Start: 08/31/22 17:59 Freq: Status: Active Protocol: Document 09/03/22 10:34 LRN (Rec: 09/03/22 11:22 LRN [id number]) Trunk Strength Trunk Manual Muscle Testing Core Stabilization Pt has loss of core stability in sidelie Hip Strength Hip Manual Muscle Testing Right Flexion (L2) 5 Normal Extension (S1) 5 Normal Abduction 5 Normal Adduction 5 Normal External Rotation 5 Normal Internal Rotation 4 Good Left Flexion (L2) 5 Normal Extension (S1) 5 Normal Abduction 5 Normal Adduction 5 Normal External Rotation 5 Normal Internal Rotation 3+ Fair+ PT-OP-Q Treatments Start: 08/31/22 17:59 Freq: Status: Active Protocol: Document 11/05/22 12:48 AMB (Rec: 11/05/22 13:27 AMB [id number]) Therapeutic Exercises Sitting Exercises roll in roll out Reps/Minutes 2x10 Comments challenging Standing Exercises sit to stand Standing Exercise Name with pelvic floor contract Reps/Minutes 2x10 PT-OP-T Assessment and Plan Start: 08/31/22 17:59 Freq: Status: Active Protocol: Document 11/05/22 12:48 AMB (Rec: 11/05/22 13:27 AMB [id number]) Physical Therapy Assessment Goals Three Impairment Decreased PF strength Short Term Goal (STG) Improve pt postural awareness (decrease lordosis). STG Duration 10/19/22 Skilled Nursing Goal (LTG) At end of walk with a full bladder, walking downhill and sneeze or cough, without leakage. LTG Duration 12/02/22 Two Impairment Decreased hip mobility Promotion Officer Goal (LTG) Symmetry of hip rotation mobility. LTG Duration 12/02/22 One Impairment HEP Short Term Goal (STG) Education in proper breath with transfers and vulvar/ genital care. 09/10/22: Pt educated in deep deep breathing for transfers. STG Duration 10/19/22 progressing 09/10/22 - educ in breathing. Promotion Officer Goal (LTG) Trying to avoid bladder surgery by being proactive and learn how to strengthen her PF. LTG Duration 12/02/22 Assessment Summary Assessment Encouraged pt in engaging pelvic floor with movement, and to progress kegels into standing to provide more challenge. Physical Therapy Plan Frequency and Duration Frequency of Treatment 1x/Week Plan of Care Start Date 09/03/22 Plan of Care End Date 12/02/22 Therapeutic Interventions Therapeutic Interventions Home Exercise Program,Joint Mobilizations,Manual Therapy, Neuromuscular Re-education, Patient/Caregiver Education, Self-Care/Home Management,Soft Tissue Mobilization, Therapeutic Activities, Therapeutic Exercises Next Visit Focus/Plan Next Note Type Treatment Note Next Visit Plan Progress HEPEMG biofeedback assessment. Biofeedback with vaginal/rectal/surface sensor( s). PF/core-TA/hip strengthening, ROM: improve hip mobility, improve abdominal soft tissue (bladder) mobility,
--- NOTE | 2022-11-12 10:46 | PT.OTN ---
Current Diagnoses Stress incontinence (female) (male) (11/12/22) Physical Therapy Treatment Note PT-OP-A Visit Information Start: 08/31/22 17:59 Freq: Status: Active Protocol: Document 11/12/22 10:03 AMB (Rec: 11/12/22 10:46 AMB [id number]) Out-Patient Physical Therapy Visit Information Visit Information Visit Type Treatment Note Visit Start Time 10:00 Visit Stop Time 10:45 Total Visit Minutes 45 Visit Number 7 PT-OP-B Current Condition Start: 08/31/22 17:59 Freq: Status: Active Protocol: Document 09/03/22 10:34 LRN (Rec: 09/03/22 11:22 LRN [id number]) Current Condition History of Current Condition Onset Date 2 yrs ago. Current Complaints Wants to learn how to strengthen PF ms to prevent prolapse from worsening. History of Current Condition Drinks a ton of water and can always go to the bathroom. In [place], was told she had a mild prolapse. If she has a full bladder and sneeze she leaks and sometimes severe leakage. Developmental History Developmental History 3G, 2P. 2 vaginal births of preemie babies. 1st 6#6oz's required stitches, 2nd no stitches required. Treatment Goals Patient/Caregiver Goals Trying to avoid bladder surgery by being proactive and learn how to strengthen her PF. Pt agreeable to adding goal for indepedent self care HEP, to increase hip mobility and PF strength. Personal Factors Other Personal Factors That May Effect MS diagnosed 15 yrs ago being Therapy/Recovery controlled by interferon, having twitches at night that wake her up, hypothyroid disorder (levothyroxine), acid reflux. PT-OP-C Subjective Start: 08/31/22 17:59 Freq: Status: Active Protocol: Document 11/12/22 10:03 AMB (Rec: 11/12/22 10:46 AMB [id number]) OP-PT Subjective Patient Comments Patient Comments Pt is up to 10 seconds in sitting, but worried about compensating with abs and glutes. PT-OP-I Pelvic Floor Start: 08/31/22 17:59 Freq: Status: Active Protocol: Document 09/03/22 10:34 LRN (Rec: 09/04/22 17:01 LRN [id number]) Pelvic Floor Assessment Prolapse Cystocele Grade 2 Rectocele Grade 1 Perineal Descent Resting Absent Bearing Absent Contraction Ability Manual Muscle Testing Left 2 Manual Muscle Testing Right 3 Manual Muscle Testing Anterior 2 Manual Muscle Testing Posterior 3 Comments Pelvic Floor Comments At PF clock 6 there is extra tissue in the vaginal canal that has appearance of fatty tissue, but skin-tag like. PT-OP-J Posture/Palpation/Skin Start: 09/04/22 16:45 Freq: Status: Active Protocol: Document 09/03/22 10:34 LRN (Rec: 09/04/22 16:47 LRN [id number]) Posture Evaluation Position Standing T-Spine Posture Flattened L-Spine Posture Increased Lordosis Shoulder Posture (L) Rounded,(R) Rounded,(L) Forward,(R) Forward,(L) Elevated Arm Posture (L) Internally Rotated,(R) Internally Rotated Comments Posture Comments Dowagers hump. C-curve of spine with apex on the left. PT-OP-K Range of Motion Start: 08/31/22 17:59 Freq: Status: Active Protocol: Document 09/03/22 10:34 LRN (Rec: 09/03/22 11:22 LRN [id number]) Lumbar Spine Range of Motion Lumbar Spine Active Degrees Testing Position Standing Flexion 85 Extension 25 Rotation Left 20 Rotation Right 15 Lateral Flexion Left 10 Lateral Flexion Right 15 Comments Trunk FB: 85 deg's with 60 deg's of hip flexion Trunk BB: 25 deg's with 15 deg's hip extension Hip Goniometric Range of Motion Hip Right Passive Testing Position Supine Straight Leg Raise 80 Internal Rotation 45 External Rotation 60 Left Passive Testing Position Supine Straight Leg Raise 80 Internal Rotation 45 External Rotation 55 PT-OP-M Strength Start: 08/31/22 17:59 Freq: Status: Active Protocol: Document 09/03/22 10:34 LRN (Rec: 09/03/22 11:22 LRN [id number]) Trunk Strength Trunk Manual Muscle Testing Core Stabilization Pt has loss of core stability in sidelie Hip Strength Hip Manual Muscle Testing Right Flexion (L2) 5 Normal Extension (S1) 5 Normal Abduction 5 Normal Adduction 5 Normal External Rotation 5 Normal Internal Rotation 4 Good Left Flexion (L2) 5 Normal Extension (S1) 5 Normal Abduction 5 Normal Adduction 5 Normal External Rotation 5 Normal Internal Rotation 3+ Fair+ PT-OP-Q Treatments Start: 08/31/22 17:59 Freq: Status: Active Protocol: Document 11/12/22 10:03 AMB (Rec: 11/12/22 10:46 AMB [id number]) Therapeutic Exercises Sitting Exercises 65cm Sitting Exercise Name ball sitting, control with UE flexion Comments 10 second long hold Standing Exercises quick flicks Standing Exercise Name challenging felt glutes take over sit to stand Standing Exercise Name with pelvic floor contract Reps/Minutes 2x10 PT-OP-T Assessment and Plan Start: 08/31/22 17:59 Freq: Status: Active Protocol: Document 11/12/22 10:03 AMB (Rec: 11/12/22 10:46 AMB [id number]) Physical Therapy Assessment Goals Three Impairment Decreased PF strength Short Term Goal (STG) Improve pt postural awareness (decrease lordosis). STG Duration 10/19/22 Complaint Operator Goal (LTG) At end of walk with a full bladder, walking downhill and sneeze or cough, without leakage. LTG Duration 12/02/22 Two Impairment Decreased hip mobility Complaint Operator Goal (LTG) Symmetry of hip rotation mobility. LTG Duration 12/02/22 One Impairment HEP Short Term Goal (STG) Education in proper breath with transfers and vulvar/ genital care. 09/10/22: Pt educated in deep deep breathing for transfers. STG Duration 10/19/22 progressing 09/10/22 - educ in breathing. Complaint Operator Goal (LTG) Trying to avoid bladder surgery by being proactive and learn how to strengthen her PF. LTG Duration 12/02/22 Assessment Summary Assessment Challenged by sitting and standing exercises. Encouraged to do supine and sitting exercises in combination over the next week . Physical Therapy Plan Frequency and Duration Frequency of Treatment 1x/Week Plan of Care Start Date 09/03/22 Plan of Care End Date 12/02/22 Therapeutic Interventions Therapeutic Interventions Home Exercise Program,Joint Mobilizations,Manual Therapy, Neuromuscular Re-education, Patient/Caregiver Education, Self-Care/Home Management,Soft Tissue Mobilization, Therapeutic Activities, Therapeutic Exercises Next Visit Focus/Plan Next Note Type Treatment Note Next Visit Plan Progress HEPEMG biofeedback assessment. Biofeedback with vaginal/rectal/surface sensor( s). PF/core-TA/hip strengthening, ROM: improve hip mobility, improve abdominal soft tissue (bladder) mobility,
--- NOTE | 2023-01-23 14:19 | PT.OPDS ---
Current Diagnoses Stress incontinence (female) (male) (11/12/22) Visit Care Team Role Provider Type Ana Rosa Coleman PA-C Attending Provider Non-Staff Family Provider Primary Care Provider Referring Provider Specialty: Medical Address: [facility], [address], [place], [address] Email: Visit Number Visit Number 7 Discharge Summary PT-OP-B Current Condition Start: 08/31/22 17:59 Freq: Status: Active Protocol: Document 09/03/22 10:34 LRN (Rec: 09/03/22 11:22 LRN [id number]) Current Condition History of Current Condition Onset Date 2 yrs ago. Current Complaints Wants to learn how to strengthen PF ms to prevent prolapse from worsening. History of Current Condition Drinks a ton of water and can always go to the bathroom. In [place], was told she had a mild prolapse. If she has a full bladder and sneeze she leaks and sometimes severe leakage. Developmental History Developmental History 3G, 2P. 2 vaginal births of preemie babies. 1st 6#6oz's required stitches, 2nd no stitches required. Treatment Goals Patient/Caregiver Goals Trying to avoid bladder surgery by being proactive and learn how to strengthen her PF. Pt agreeable to adding goal for indepedent self care HEP, to increase hip mobility and PF strength. Personal Factors Other Personal Factors That May Effect MS diagnosed 15 yrs ago being Therapy/Recovery controlled by interferon, having twitches at night that wake her up, hypothyroid disorder (levothyroxine), acid reflux. PT-OP-C Subjective Start: 08/31/22 17:59 Freq: Status: Active Protocol: Document 11/12/22 10:03 AMB (Rec: 11/12/22 10:46 AMB [id number]) OP-PT Subjective Patient Comments Patient Comments Pt is up to 10 seconds in sitting, but worried about compensating with abs and glutes. PT-OP-I Pelvic Floor Start: 08/31/22 17:59 Freq: Status: Active Protocol: Document 09/03/22 10:34 LRN (Rec: 09/04/22 17:01 LRN [id number]) Pelvic Floor Assessment Prolapse Cystocele Grade 2 Rectocele Grade 1 Perineal Descent Resting Absent Bearing Absent Contraction Ability Manual Muscle Testing Left 2 Manual Muscle Testing Right 3 Manual Muscle Testing Anterior 2 Manual Muscle Testing Posterior 3 Comments Pelvic Floor Comments At PF clock 6 there is extra tissue in the vaginal canal that has appearance of fatty tissue, but skin-tag like. PT-OP-J Posture/Palpation/Skin Start: 09/04/22 16:45 Freq: Status: Active Protocol: Document 09/03/22 10:34 LRN (Rec: 09/04/22 16:47 LRN [id number]) Posture Evaluation Position Standing T-Spine Posture Flattened L-Spine Posture Increased Lordosis Shoulder Posture (L) Rounded,(R) Rounded,(L) Forward,(R) Forward,(L) Elevated Arm Posture (L) Internally Rotated,(R) Internally Rotated Comments Posture Comments Dowagers hump. C-curve of spine with apex on the left. PT-OP-K Range of Motion Start: 08/31/22 17:59 Freq: Status: Active Protocol: Document 09/03/22 10:34 LRN (Rec: 09/03/22 11:22 LRN [id number]) Lumbar Spine Range of Motion Lumbar Spine Active Degrees Testing Position Standing Flexion 85 Extension 25 Rotation Left 20 Rotation Right 15 Lateral Flexion Left 10 Lateral Flexion Right 15 Comments Trunk FB: 85 deg's with 60 deg's of hip flexion Trunk BB: 25 deg's with 15 deg's hip extension Hip Goniometric Range of Motion Hip Right Passive Testing Position Supine Straight Leg Raise 80 Internal Rotation 45 External Rotation 60 Left Passive Testing Position Supine Straight Leg Raise 80 Internal Rotation 45 External Rotation 55 PT-OP-M Strength Start: 08/31/22 17:59 Freq: Status: Active Protocol: Document 09/03/22 10:34 LRN (Rec: 09/03/22 11:22 LRN [id number]) Trunk Strength Trunk Manual Muscle Testing Core Stabilization Pt has loss of core stability in sidelie Hip Strength Hip Manual Muscle Testing Right Flexion (L2) 5 Normal Extension (S1) 5 Normal Abduction 5 Normal Adduction 5 Normal External Rotation 5 Normal Internal Rotation 4 Good Left Flexion (L2) 5 Normal Extension (S1) 5 Normal Abduction 5 Normal Adduction 5 Normal External Rotation 5 Normal Internal Rotation 3+ Fair+ PT-OP-T Assessment and Plan Start: 08/31/22 17:59 Freq: Status: Active Protocol: Document 01/23/23 14:18 AMB (Rec: 01/23/23 14:19 AMB [id number]) Physical Therapy Assessment Goals Three Impairment Decreased PF strength Short Term Goal (STG) Improve pt postural awareness (decrease lordosis). STG Duration MET Radial Router Operator Goal (LTG) At end of walk with a full bladder, walking downhill and sneeze or cough, without leakage. LTG Duration 12/02/22 Two Impairment Decreased hip mobility Radial Router Operator Goal (LTG) Symmetry of hip rotation mobility. LTG Duration 12/02/22 One Impairment HEP Short Term Goal (STG) Education in proper breath with transfers and vulvar/ genital care. 09/10/22: Pt educated in deep deep breathing for transfers. STG Duration 10/19/22 progressing 09/10/22 - educ in breathing. Radial Router Operator Goal (LTG) Trying to avoid bladder surgery by being proactive and learn how to strengthen her PF. LTG Duration MET Assessment Summary Assessment Marissa wanted to take a break from PT for a while, going to continue on her HEP and continue to progress independently. Physical Therapy Plan Frequency and Duration Frequency of Treatment 1x/Week Plan of Care Start Date 09/03/22 Plan of Care End Date 12/02/22 Discharge Physical Therapy Discharge Reasons Patient Request
== END 2023-01-24 11:25 | disposition home or self-care (01) ==
LOC: PHYS 10:00
PROVIDERS: Absent Provider Physician Assistant; Family Provider Physician Assistant; PCP Physician Assistant; Referring Provider Physician Assistant; Visit Provider Physician Assistant
DX: N39.3 Stress incontinence (female) (male) (principal)
CPT/HCPCS: 97110; 97112; 97162; 97535

== ENCOUNTER → 2023-09-19 10:36 | Outpatient (CLI) | payer OTHER, SELFPAY ==
--- NOTE | 2023-09-19 | DI.RAD.S_ITS ---
Bone Density Report Name: GABRIEL ORELLANA Age: 52 Sex: Female Ethnicity: White Date of : 1970 Indication: screening for osteoporosis; Referring Provider: SHELBY METZGER Study: Bone densitometry was performed. Exam Date: September 19, 2023 Accession number: [id number] Bone Density: Region BMD T-score Z-score Classification AP Spine(L1, L2, L3) 1.072 0.5 1.3 Normal Femoral Neck (Left) 0.667 -1.6 -0.8 Osteopenia Total Hip (Left) 0.804 -1.1 -0.6 Osteopenia Femoral Neck (Right) 0.680 -1.5 -0.7 Osteopenia Total Hip (Right) 0.846 -0.8 -0.3 Normal Total Hip Mean 0.825 -1.0 -0.5 Normal World Health Organization criteria for BMD impression classify patients as: Normal (T-score at or above -1.0), Osteopenia (T-score between -1.0 and -2.5), or Osteoporosis (T-score at or below -2.5). 10-year Fracture Risk: FRAX not reported because: Premenopausal woman Previous Exams: -- Region Exam Age BMD T-score BMD Change BMD Change Date g/cm2 vs Baseline vs Previous -- AP Spine (L1-L3) 09/19/2023 52 1.072 0.5 0.023 (2.2%)# -0.027 (-2.4%)# 09/08/2021 50 1.099 0.050 (4.8%)# 0.050 (4.8%)# 01/19/2020 49 1.049 Total Hip(Left) 09/19/2023 52 0.804 -1.1 -0.049 (-5.7%)# -0.053 (-6.1%)# 09/08/2021 50 0.856 0.004 (0.4%)# 0.004 (0.4%)01/19/2020 49 0.853 Total Hip(Right) 09/19/2023 52 0.846 -0.8 0.007 (0.8%)# 0.003 (0.4%)# 09/08/2021 50 0.843 0.003 (0.4%)# 0.003 (0.4%)01/19/2020 49 0.839 -- *Denotes significance at 95% confidence level, LSC for AP Spine = 0.022 g/cm2, LSC for Total Hip = 0.027 g/cm2 Rate of change results reflect vertebral levels common to all scans # Denotes dissimilar scan types or analysis methods Impression: The patient's bone mass is within expected range for age, gender and ethnicity. No significant bone loss was observed. Discussion: BONE DENSITY IS WITHIN EXPECTED LIMITS FOR AGE, SEX AND RACE. Bone density is within expected limits for age, sex and race at all sites measured. The patient should follow a healthful lifestyle (good nutrition with adequate calcium and vitamin D, and appropriate weight-bearing exercise). Follow-Up: Consider repeating this study in 2 to 3 years to reassess this patient's status, or sooner if there is some new clinical indication. Reported by: BAY PERDUE M.D. on 09/19/2023 11:06:00 AM.
== END ==
PROVIDERS: Family Provider Physician Assistant; PCP Physician Assistant; Referring Provider Physical Medicine & Rehabilitation; Visit Provider Physical Medicine & Rehabilitation
DX: Z13.820 Encounter for screening for osteoporosis (principal); Z78.0 Asymptomatic menopausal state
CPT/HCPCS: 77080

== ENCOUNTER → 2024-04-30 10:45 | Outpatient (CLI) | payer OTHER, SELFPAY ==
--- NOTE | 2024-04-30 | DI.US.S_ITS ---
PROCEDURE: US PELVIC COMPLETE INDICATIONS: POSTMENOPAUSAL BLEEDING TECHNIQUE: Real-time scanning was performed of the pelvic organs, with image documentation. Additional endovaginal scanning was necessary due to incomplete visualization of the adnexal and endometrial structures by transabdominal scanning. COMPARISON: None. FINDINGS: Uterus: Uterus is anteverted and normal in size at 7.3 cm. The myometrium is homogeneous. The endometrium measures 3 mm combined thickness. A few small subcentimeter intramural fibroids are noted. A few small nabothian cysts are seen at the cervix. Ovaries: The right ovary measures 1.6 x 1.0 cm, with significant posterior acoustic shadowing making volume calculation impossible. The left ovary measures 3.4 x 1.3 x 1.2 cm, with a calculated ovarian volume of 2.7 cc. The left ovary has a normal sonographic appearance. No adnexal masses are seen. Other: No pathologic free abdominal or pelvic fluid. The urinary bladder appears normal. IMPRESSION: No abnormal endometrial thickening. The right ovary is only partially visualized with significant acoustic shadowing, possibly due to calcification involving the right ovary. Consider either CT or MRI of the pelvis for further assessment. We strive to produce accurate, complete, and clear reports of imaging services. To assist us in improving patient care, this report was composed using standard report templates and voice recognition software. Therefore, it may contain abnormal punctuation, insertions and/or omissions. Occasional wrong-word or sound-alike substitutions may occur. Though we review the report and make efforts to correct it, we do recommend that the report be read carefully in proper context to recognize any text inaccuracies. Dictated by: Chin Schneider M.D. on 04/30/2024 at 17:23 Approved by: Chin Schneider M.D. on 04/30/2024 at 17:29
== END ==
PROVIDERS: Family Provider Physician Assistant; PCP Physician Assistant; Referring Provider Obstetrics & Gynecology; Visit Provider Obstetrics & Gynecology
DX: N95.0 Postmenopausal bleeding (principal)
CPT/HCPCS: 76830; 76856

== ENCOUNTER → 2024-11-04 09:45 | Outpatient (CLI) | payer OTHER, SELFPAY ==
--- NOTE | 2024-11-04 | DI.RAD.S_ITS ---
PROCEDURE: XR DEXA AXIAL SKELETON INDICATIONS: POSTMENOPAUSAL,OSTEOPOROSIS COMPARISON: [facility], CR, XR DEXA AXIAL SKELETON, 09/19/2023, 10:59. FINDINGS: Lumbar Spine: Bone mineral density 1.116 (previously 1.072) g/cm2, T score 0.9 (previously 0.5). Left Femoral Neck: Bone mineral density 0.683 (previously 0.667) g/cm2, T score -1.5 (previously -1.6). Left Hip: Bone mineral density 0.864 (previously 0.804) g/cm2, T score -0.6 (previously -1.1). Fracture Risk Calculation (when applicable): 10-year fracture risk of a major osteoporotic fracture 4.9 percent and of a hip fracture 0.4 percent. (T score greater or equal to -1.0 to: NORMAL) (T score from -1.1 to -2.4: OSTEOPENIA) (T score less than or equal to -2.5: OSTEOPOROSIS) IMPRESSION: Osteopenia--- recommend repeat DEXA in 2-3 years for reassessment. Follow-up guidelines as follows: Osteoporosis: Consider a repeat DEXA and Vertebral Fracture Assessment (VFA) exam in 2 years or sooner if medically necessary, to reassess this patient's status. Osteopenia: Consider a repeat DEXA in 2-3 years to reassess this patient's status, or if there is a new clinical indication. Normal: Consider a repeat DEXA in 5 years or sooner, or if there is a new clinical indication. All treatment decisions require clinical judgment and consideration of individual patient factors, including patient preferences, comorbidities, previous drug use, risk factors not captured in the FRAX model (e.g., frailty, falls, vitamin D deficiency, increased bone turnover, interval significant decline in bone density ) and possible under- or over-estimation of fracture risk by FRAX. In addition, the NOF Guide recommends that FDA-approved medical therapies be considered in postmenopausal women and men age >= 50 years with a: * Hip or vertebral (clinical or morphometric) fracture * T-score of <=-2.5 at the spine or hip * Ten-year fracture probability by FRAX of >= 3% for hip fracture or >=20% for major osteoporotic fracture. Dictated by: Matthew Shah M.D. on 11/04/2024 at 21:15 Approved by: Matthew Shah M.D. on 11/04/2024 at 21:19
== END ==
LOC: RAD 09:46
PROVIDERS: Family Provider Physician Assistant; PCP Physician Assistant; Referring Provider Physical Medicine & Rehabilitation; Visit Provider Physical Medicine & Rehabilitation
DX: Z78.0 Asymptomatic menopausal state (principal); M85.89 Other specified disorders of bone density and structure, multiple sites; G35 Multiple sclerosis
CPT/HCPCS: 77080

== ENCOUNTER → 2024-11-04 09:50 | Outpatient (CLI) | payer OTHER, SELFPAY ==
--- NOTE | 2024-11-04 09:53 | DI.MG.S_ITS ---
MM screening mammo BI: 11/04/2024. BI-RADS: 1 CLINICAL: 54-year old female for bilateral screening mammogram. Tyrer-Cuzick lifetime risk of 7.5%. No personal or first-degree family history of breast cancer. PRIOR EXAMS 04/05/2022, 01/19/2020, 04/06/2016, 03/31/2015. MAMMOGRAPHY TECHNIQUE: 2D and 3D (tomosynthesis) digital mammographic views obtained, with additional images as needed for full coverage. Current study was also evaluated with a Computer Aided Detection (CAD) system. DENSITY C. The breasts are heterogeneously dense, which may obscure small masses. MAMMOGRAPHY FINDINGS Bilateral: No suspicious mass, asymmetry, microcalcification, or other abnormality seen. No significant change from comparison. IMPRESSION: * No evidence of malignancy. RECOMMENDATIONS Bilateral * Annual screening mammography. OVERALL ASSESSMENT CATEGORY BI-RADS-1: Negative. The [employer] [place] recommends annual screening mammography beginning at age 40 for women with average risk of breast cancer. ELECTRONICALLY SIGNED: Clotilde Pollard M.D. on 11/04/2024 at 03:49:17 PM PT Interpreting Station ID: [id number]
== END ==
LOC: MAMMO 09:50
PROVIDERS: Family Provider Physician Assistant; PCP Physician Assistant; Referring Provider Physician Assistant; Visit Provider Physician Assistant
DX: Z12.31 Encounter for screening mammogram for malignant neoplasm of breast (principal); Z78.0 Asymptomatic menopausal state; M85.89 Other specified disorders of bone density and structure, multiple sites; G35 Multiple sclerosis
CPT/HCPCS: 77063; 77067; 77080

== ENCOUNTER 2025-05-02 20:59 | Emergency (ER) | payer OTHER, SELFPAY ==
[2025-05-02 21:03] VITALS: BP 146/68; PULSE 68; RESP 14; TEMP 36.4; O2SAT 99; BMI 20.7
--- NOTE | 2025-05-02 22:15 | ED_ITS ---
HPI - Skin/Abscess/Foreign Bdy
--- NOTE | 2025-05-02 22:15 | ED.SKABFB ---
HPI - Skin/Abscess/Foreign Bdy General Chief complaint: Skin/Abscess/Foreign Body Stated complaint: bug bite/redness/swelling/itchy x 1 day ago Time Seen by Provider: 05/02/25 21:37 Source: patient Mode of arrival: Ambulatory Limitations: no limitations History of Present Illness HPI narrative: 54-year-old female with a history of multiple sclerosis who 1 day ago had a bite over the right side of her neck from an unidentified insect that became increasingly warm around the area with some increased redness and tenderness. Related Data Previous Rx's ?Medication ?Instructions ?Recorded amoxicillin 875 mg-potassium 1 tab PO BID #20 tabs 05/02/25 clavulanate 125 mg tablet prednisone 20 mg tablet 40 mg (2 x 20 mg) PO DAILY 4 days 05/02/25 #8 tabs Allergies Allergy/AdvReac Type Severity Reaction Status Date / Time No Known Drug Allergies Allergy Unverified 05/02/25 21:04 Review of Systems Review of Systems ROS Unobtainable: All systems reviewed & are unremarkable except as noted in HPI and below Patient History Social History Smoking Status: Never smoker Smoking Status: Never smoker Exam Narrative Exam Narrative: General: Patient appears to be in no acute distress, acting appropriately Head: normocephalic, atraumatic, HEENT: Pupils equal round reactive, eyes tracking well, neck supple, no JVD neck: redness/warmth/swelling around right side of neck Heart: regular rate and rhythm, no murmurs, rubs, or gallops heard Lungs: clear to auscultation, no adventitious sounds Abdomen: soft , nontender, nondistended, positive bowel sounds Neurological: no focal neurological signs, moving all extremities well, alert and oriented x3, Psych: good judgment ,good insight, mood is normal. Initial Vital Signs Initial Vital Signs: Vital Signs Temperature 97.5 F L 05/02/25 21:03 Pulse Rate 68 05/02/25 21:03 Respiratory Rate 14 05/02/25 21:03 Blood Pressure 146/68 H 05/02/25 21:03 Pulse Oximetry 99 05/02/25 21:03 Oxygen Delivery Method Room Air 05/02/25 21:03 Course Orders Ordered: Discontinued Medications Amoxicillin/Clavulanate Potassium (Amoxicillin/Clav 875/125 Mg) 1 tab PO NOW ONE Stop: 05/02/25 22:17 Last Admin: 05/02/25 22:37 Dose: 1 tab Documented By: MATT Prednisone (Prednisone 20 Mg Tablet) 40 mg PO NOW ONE Stop: 05/02/25 22:22 Last Admin: 05/02/25 22:37 Dose: 40 mg Documented By: MATT Vital Signs Vital signs: Vital Signs - 8 hr 05/02/25 22:59 Pulse Rate 63 Respiratory Rate 15 Blood Pressure 139/64 Pulse Oximetry 100 Oxygen Delivery Method Room Air MDM - Skin/Abscess/Foreign Bdy MDM Narrative Medical decision making narrative: 54-year-old female with a history of multiple sclerosis presents with some redness more and swelling on the right side of her neck after an unidentified insect bit her in that area. It is cellulitic in nature. Patient will be given a dose of Augmentin here now and prescribed more to complete a 10 day course. Advised to follow up in 2 days if not improved Discharge Plan Departure Patient Disposition: Home Clinical Impression: Cellulitis Qualifiers: Site of cellulitis: neck Qualified Code(s): L03.221 - Cellulitis of neck Instructions: DI for Cellulitis -- Adult Activity Restrictions/Additional Instructions: Use antibiotics and prednisone as prescribed. Follow up in 2 days if not improved. Prescriptions: New amoxicillin-pot clavulanate 875-125 mg tablet 1 tab PO BID Qty: 20 0RF prednisone 20 mg tablet 40 mg PO DAILY 4 Days Qty: 8 0RF Referrals: Lydia Webber MD [Primary Care Provider, Family Practice] Stand Alone Forms: Patient Portal/API
[2025-05-02] MEDS: AMOXICILLIN/CLAV 875/125 MG 1 TAB PO (22:37)
[2025-05-02 22:59] VITALS: BP 139/64; PULSE 63; RESP 15; O2SAT 100
== END 2025-05-02 23:00 | disposition home or self-care (01) ==
PROVIDERS: Emergency Provider Family Medicine; Family Provider Physician Assistant; PCP Family Medicine
DX: L03.221 Cellulitis of neck (principal)
CPT/HCPCS: 99283

== ENCOUNTER 2025-05-24 19:01 | Emergency (ER) | payer OTHER, SELFPAY ==
[2025-05-24 19:42] VITALS: BP 155/84; PULSE 74; RESP 16; TEMP 37.6; O2SAT 98; BMI 20.7
--- NOTE | 2025-05-24 19:49 | DI.RAD.S_ITS ---
PROCEDURE: XR FOOT RT MIN 3V INDICATIONS: fall TECHNIQUE: 3 views of the foot were acquired. COMPARISON: None. FINDINGS: Bones: Distal fibular fracture better evaluated on separately dictated ankle radiographs. No additional fractures in the foot are visualized. Soft tissues: Small tibiotalar joint effusion. Achilles tendon appears normal. IMPRESSION: Distal fibular fracture better evaluated on separately dictated ankle radiographs. No additional fractures in the foot are visualized. Dictated by: Mando Alberto M.D. on 05/24/2025 at 20:34 Approved by: Mando Alberto M.D. on 05/24/2025 at 20:36
--- NOTE | 2025-05-24 19:49 | DI.RAD.S_ITS ---
PROCEDURE: XR ANKLE RT MIN 3V INDICATIONS: fall TECHNIQUE: 3 views of the ankle were acquired. COMPARISON: None. FINDINGS: Bones: Oblique minimally displaced fracture of the distal fibula across the level of the syndesmosis extending into the ankle mortise. No suspicious bony lesions. Soft tissues: Prominent soft tissue swelling over the lateral ankle. Small tibiotalar joint effusion. IMPRESSION: Oblique minimally displaced fracture of the distal fibula across the level of the syndesmosis extending into the ankle mortise. Small tibiotalar joint effusion. Dictated by: Mando Alberto M.D. on 05/24/2025 at 20:36 Approved by: Mando Alberto M.D. on 05/24/2025 at 20:40
--- NOTE | 2025-05-24 21:22 | DI.RAD.S_ITS ---
PROCEDURE: XR ANKLE RT 2V INDICATIONS: Dr. Cueto would like gravity stress view TECHNIQUE: 1 views of the ankle were acquired. COMPARISON: [facility], CR, XR FOOT RT MIN 3V, 05/24/2025, 19:55. [facility], CR, XR ANKLE RT MIN 3V, 05/24/2025, 19:55. FINDINGS: Bones: There is an oblique fracture involving the distal right fibula noted near the level of the syndesmosis. The ankle mortise appears intact. Moderate overlying soft tissue edema. Possible nondisplaced fracture involving the distal tip of the medial malleolus. Mild overlying soft tissue swelling. Other visualized osseous structures of the ankle appear intact on this single frontal gravity stress view. Soft tissues: No tibiotalar joint effusion. Achilles tendon appears normal. Moderate lateral and mild medial malleolar soft tissue edema. IMPRESSION: Oblique fracture of the distal right fibula near the level of the syndesmosis. No evidence for ankle mortise disruption or widening of the tibiotalar joint on this single gravity stress view. Possible nondisplaced fracture involving the distal tip of the medial malleolus. If there are clinical concerns for ligamentous injury, further evaluation with nonemergent MRI can be considered. Dictated by: Blade Simental M.D. on 05/24/2025 at 22:01 Approved by: Blade Simental M.D. on 05/24/2025 at 22:06
--- NOTE | 2025-05-24 22:10 | ED_ITS ---
HPI - Extremity Injury (Lower) General Chief Complaint: Extremity Injury, Lower Stated Complaint: RT ankle px/fell Time Seen by Provider: 05/24/25 21:22 Source: patient and family Mode of arrival: Wheelchair History of Present Illness HPI Narrative: 54-year-old female with a history of MS presents with complaint of right ankle pain. Patient states she was walking with a friend it was dark out she slipped on it [place] ditch with her foot going forward and causing it to plantar flex significantly and then dorsiflex. Patient states she felt a crack. Patient states no other injuries. She states she takes medication for multiple sc lerosis. She denies any drug allergies. Related Data Previous Rx's ?Medication ?Instructions ?Recorded amoxicillin 875 mg-potassium 1 tab PO BID #20 tabs 03/18 clavulanate 125 mg tablet hydrocodone 5 mg-acetaminophen 325 1 tab PO Q6H PRN pa in #14 tabs 05/24/25 mg tablet Allergies Allergy/AdvReac Type Severity Reaction Status Date / Time No Known Drug Allergies Allergy Verified 05/24/25 19:42 Review of Systems Review of Systems ROS Unobtainable: All systems reviewed & are unremarkable except as noted in HPI and below Patient History Smoking Status: Never smoker Exam Narrative Exam Narrative: GENERAL: Alert and oriented x three, female in mild distress HEENT: Head normocephalic, atraumatic, EOMI, pupils reactive, face symmetric, moist mucous membranes NECK: Supple, full range of motion, no cervical vertebral tenderness, normal range of motion CARDIOVASCULAR: Regular rate and rhythm without murmurs, rubs or gallops. RESPIRATORY: Breath sounds equal bilaterally, no wheezes rales or rhonchi. ABDOMEN: Soft, nontender. Normoactive bowel sounds all 4 quadrants. No guarding or rebound, rigidity, no mass : No CVA tenderness EXTREMITIES: Normal range of motion, no clubbing. Patient has swelling at the lateral medial malleolus. She has tenderness over both. Small amount of ecchymosis. Nontender over the calcaneus, metatarsals, toes. Cap refills less than 2 seconds with 2+ dorsalis pedis. No bony tenderness of the upper tib-fib, knee or hip. Patient has sensation to light touch. NEUROLOGICAL: Cranial nerves II through XII grossly intact. Moving all extremities SKIN: Warm, dry, no petechiae, no rashes or lesions. Initial Vital Signs Initial Vital Signs: Vital Signs Temperature 99.7 F H 05/24/25 19:42 Pulse Rate 74 05/24/25 19:42 Respiratory Rate 16 05/24/25 19:42 Blood Pressure 155/84 H 05/24/25 19:42 Pulse Oximetry 98 05/24/25 19:42 Oxygen Delivery Method Room Air 05/24/25 19:42 Course Orders Ordered: ED Orders 05/24/25 19:49 XR ankle RT min 3V Stat XR foot RT min 3V Stat 05/24/25 21:22 XR ankle RT 2V Stat 05/24/25 23:16 Consult to [facility] Stat Discontinued Medications Hydrocodone Bitart/Acetaminophen (Hydrocodone/Acet 5/325 Prepack) 1 bottle MISC DIRECTED ONE Stop: 05/24/25 23:18 Last Admin: 05/24/25 23:32 Dose: 1 bottle Vital Signs Vital signs: Vital Signs - 8 hr 05/24/25 19:42 05/24/25 22:36 05/24/25 22:38 Temperature 99.7 F H Pulse Rate 74 73 Respiratory Rate 16 Blood Pressure 155/84 H 166/70 H Pulse Oximetry 98 99 Oxygen Delivery Method Room Air 05/24/25 22:38 05/24/25 23:00 05/24/25 23:00 Temperature Pulse Rate 73 80 Respiratory Rate 20 Blood Pressure 145/70 H Pulse Oximetry 98 97 Oxygen Delivery Method 05/24/25 23:04 05/24/25 23:30 Temperature Pulse Rate 72 Respiratory Rate 16 Blood Pressure 124/67 Pulse Oximetry 97 Oxygen Delivery Method MDM - Extremity Injury (Lower) MDM Narrative Medical decision making narrative: Right ankle x-ray shows an oblique minimally displaced fracture distal fibula QRS level syndesmosis extending with the ankle mortise. Small tibiotalar joint effusion. Right foot x-ray shows distal fibular fracture better evaluated on dictated ankle radiographs. No additional fractures foot visualized. Repeat ankle with a gravity stress view no evidence for ankle mortise disruption or widening tibiotalar joint in the single gravity stress view possible nondisplaced fracture involving distal tip of the medial malleolus. Dr. Cueto, orthopedic surgery had reviewed patient's initial imaging asked for a gravity stress view. Plan for splint and follow up with the office for potential surgery as outpatient. Rechecked after splint was placed patient is neurovascularly intact. Splint was placed by nursing. Patient neurovascularly intact post. Ankles at 90?. Discharge Plan Departure Patient Disposition: Home Clinical Impression: Ankle fracture, right Instructions: DI for Ankle Fracture Activity Restrictions/Additional Instructions: Your imaging shows a fracture of the distal right fibula near the level of the syndesmosis there was also a possible nondisplaced fracture of the distal tip of the medial malleolus. Follow up with Orthopedic surgery if you have not heard from their office in the next 24-48 hours please call for an appointment. Contacts included below. You can take acetaminophen up to a 1000 mg every 6 hours as needed for pain. If inadequate for pain you can take Cameron 1-2 tablets every 6 hours as needed. This medication can make you sleepy do not drive, perform hazardous activities or make any major decisions while taking it. This medication will make you constipated please take a stool softener once to twice daily until stools are soft and regular. Prescription sent to [facility] in [place]. Use crutches until cleared by orthopedic surgery. Splint Care: Keep splint clean and dry. Elevated affected body part to decrease swelling. OK to use ice pack on the affected body part. Use for 15-20 minutes each time, for 5-6x per day. If you develop worsening pain, numbness, tingling, discoloration of the affected body part, loosen the splint by loosening the PATTY wrap, and either see your doctor for an urgent re-assessment, or return to the Emergency Department. Return to the Emergency Department for any new or worsening symptoms. Prescriptions: New hydrocodone-acetaminophen 5-325 mg tablet 1 tab PO Q6H PRN (Reason: pain) Qty: 14 0RF No Action amoxicillin-pot clavulanate 875-125 mg tablet 1 tab PO BID Qty: 20 0RF Referrals: Lydia Webber MD [Primary Care Provider, Family Practice] Choco Cueto MD [Physician, Orthopedic Surgery] Stand Alone Forms: Patient Portal/API
[2025-05-24 22:36] VITALS: PULSE 73; O2SAT 99
[2025-05-24 22:38] VITALS: BP 166/70; PULSE 73; O2SAT 98
[2025-05-24 23:00] VITALS: BP 145/70; PULSE 80; RESP 20; O2SAT 97
[2025-05-24 23:04] VITALS: PULSE 72; O2SAT 97
[2025-05-24 23:30] VITALS: BP 124/67; RESP 16
== END 2025-05-24 23:52 | disposition home or self-care (01) ==
PROVIDERS: Emergency Provider Emergency Medicine; Family Provider Physician Assistant; PCP Family Medicine
DX: S82.831A Other fracture of upper and lower end of right fibula, initial encounter for closed fracture (principal); W01.0XXA Fall on same level from slipping, tripping and stumbling without subsequent striking against object, initial encounter
CPT/HCPCS: 29515; 73600; 73610; 73630; 99283